=== PATIENT | male | born 1980 ===

== ENCOUNTER 2024-02-04 12:13 | Outpatient (CLI) | payer OTHER | END 2024-02-04 12:24 | disposition home or self-care (01) | LOC: RAD 12:13 | PROVIDERS: ATTEND Orthopaedic Surgery | DX: M25.532 Pain in left wrist (principal) ==

== ENCOUNTER 2024-06-17 13:44 | Outpatient (CLI) | payer OTHER | END 2024-06-17 13:51 | disposition home or self-care (01) | LOC: RAD 13:44 | PROVIDERS: ATTEND Orthopaedic Surgery | DX: S63.392D Traumatic rupture of other ligament of left wrist, subsequent encounter (principal) ==